=== PATIENT | male | born 1960 | race Two or more races ===

== ENCOUNTER 2025-06-14 14:59 | Inpatient (IN) | payer MEDICARE, MEDICAID ==
[2025-06-14] VITALS (7 sets, daily range): BP systolic 103–178; BP diastolic 90–108; PULSE 105–117; RESP 20–30; TEMP 36.5848–36.6; O2SAT 90–96
[~2025-06-14] VITALS: Ht 170.2 cm; Wt 76.7 kg
[2025-06-14 15:46] LABS: INR 1.0
[2025-06-14 15:49] LABS: CREATININE 0.7 mg/dL (0.6-1.3)
[2025-06-14 15:50] LABS: ETHANOL BLOOD < 10 mg/dL (<10); UREA NITROGEN BLOOD 9 mg/dL (9-23)
[2025-06-14 15:51] LABS: ASPARTATE AMINOTRANSFERASE 17 IU/L (<34)
[2025-06-14 15:52] LABS: BILIRUBIN DIRECT 0.1 mg/dL (<=3.0); BILIRUBIN TOTAL 0.5 mg/dL (0.1-1.0); PROTEIN TOTAL 7.5 g/dL (6.0-8.3)
[2025-06-14 16:06] LABS: BASOPHILS % 0.7 % (0.0-2.0); EOSINOPHILS % 5.5 % (0.0-5.0); HEMATOCRIT. 43.0 % (42.0-52.0); HEMOGLOBIN. 13.9 g/dL (14.0-18.0); LYMPHOCYTES % 8.8 % (20.0-50.0); MEAN PLATELET VOLUME 8.0 fl (7.4-10.4); MONOCYTES % 6.5 % (2.0-8.0); NEUTROPHILS % 78.5 % (40.0-76.0); PLATELET 301 x1000/uL (130-400); RED BLOOD CELL COUNT 5.59 mill/uL (4.7-6.1); RED CELL DISTRIBUTION WIDTH 18.5 % (11.6-14.6)
[2025-06-14] MEDS: SODIUM CHLORIDE 0.9% 1,000 ML IV ONE (16:32)
[2025-06-14] MEDS: METHYLPREDNISOLONE SOD SUCC 125MG/2ML (ACT-O-VIAL) IV ONE (16:32)
[2025-06-14] MEDS: ALBUTEROL (0.083%) 2.5MG/3ML NEB HHN SCH (16:50)
[2025-06-14] MEDS: IPRATROPIUM BROMIDE (0.02%) 0.5MG/2.5ML NEB HHN SCH (16:50)
[2025-06-14 17:59] LABS: BG BASE EXCESS -0.9 mmol/L (-2.0-3.0); BG CARBOXYHEMOGLOBIN 0.5 % (0.5-1.5); BG DEOXYHEMOGLOBIN 1.2 % (0.0-5.0); BG FRACTION INSPIRED OXYGEN 50; BG HCO3 ACT 24.5 mmol/L (21.0-28.0); BG METHEMOGLOBIN 0.1 % (0.5-1.5); BG OXYGEN SATURATION 98.8 % (94.0-98.0); BG OXYHEMOGLOBIN 98.2 % (94.0-98.0); BG PCO2 43.4 mmHg (35.0-48.0); BG PH 7.369 (7.350-7.450); BG PO2 145.1 mmHg (83.0-108.0); BG SAMPLE SITE RIGHT RADIAL; BG TOTAL HEMOGLOBIN 13.2 g/dL (13.5-17.5); BG VENT MODE MASK - BIPAP; BG VENT RATE 18.0 set
[2025-06-14] MEDS ORDERED: IPRATROPIUM/ALBUTEROL 0.5-3(2.5)MG/3ML NEB HHN PRN ×2 (18:00)
[2025-06-14] MEDS ORDERED: DOCUSATE SODIUM 100MG CAPSULE PO PRN (18:00)
[2025-06-14] MEDS ORDERED: ACETAMINOPHEN 325MG TABLET PO PRN ×2 (18:00)
[2025-06-14] MEDS ORDERED: ONDANSETRON HCL 4MG/2ML INJ IV PRN (18:00)
[2025-06-14] MEDS ORDERED: METHYLPREDNISOLONE SOD SUCC 40MG/ML (ACT-O-VIAL) IV SCH (18:00)
[2025-06-14] MEDS ORDERED: GUAIFENESIN 200MG/10ML SUGAR FREE UDC PO PRN (18:00)
[2025-06-14] MEDS ORDERED: CEFTRIAXONE 1GM/50ML 50 ML IV SCH (18:00)
[2025-06-14] MEDS ORDERED: MAGNESIUM/ALUMINUM HYDROXIDE/SIMETHICONE 30ML UDC PO PRN (18:00)
[2025-06-14] MEDS ORDERED: NALOXONE HCL 0.4MG/ML VIAL IV PRN (18:15)
[2025-06-14] MEDS ORDERED: AZITHROMYCIN 500MG/250ML 250 ML IV SCH (20:00)
[2025-06-14] MEDS ORDERED: DEXTROSE 50% WATER 50ML SYRINGE IV PRN (20:30)
[2025-06-14] MEDS: BLOOD SUGAR DIAGNOSTIC STRIP TEST SCH (21:00)
[2025-06-14] MEDS: CEFTRIAXONE 1GM/50ML 50 ML IV SCH (21:45)
[2025-06-14] MEDS: AZITHROMYCIN 500MG/250ML 250 ML IV SCH (21:45)
[2025-06-14] MEDS: METHYLPREDNISOLONE SOD SUCC 40MG/ML (ACT-O-VIAL) IV SCH (21:47)
[2025-06-14] MEDS: ENOXAPARIN 40MG/0.4ML SYR SUBCUT SCH (21:49)
[2025-06-14] MEDS: BUDESONIDE 0.5MG/2ML NEB HHN SCH (21:52)
[2025-06-14] MEDS: IPRATROPIUM/ALBUTEROL 0.5-3(2.5)MG/3ML NEB HHN PRN (21:53)
[2025-06-14] MEDS: INSULIN LISPRO 100 UNITS/ML SUBCUT SCH (22:54)
[2025-06-15] VITALS (15 sets, daily range): BP systolic 106–159; BP diastolic 56–113; PULSE 78–132; RESP 16–34; TEMP 36–36.9; O2SAT 93–99
[2025-06-15] MEDS ORDERED: CYAN-50 PO (00:02)
[2025-06-15] MEDS ORDERED: AMLO10TA80 PO (00:02)
[2025-06-15] MEDS ORDERED: HYDR25TA78 PO (00:02)
[2025-06-15] MEDS ORDERED: FERR324T4 MT (00:02)
[2025-06-15] MEDS ORDERED: LOSA100T33 PO (00:02)
[2025-06-15] MEDS ORDERED: ATOR40TA70 PO (00:02)
[2025-06-15] MEDS ORDERED: ASPI-1497 PO (00:02)
[2025-06-15] MEDS ORDERED: BUDE6.9H INH (00:02)
[2025-06-15 00:28] LABS: CREATINE KINASE MB FRACTION 2.0 ng/mL (0.5-3.6); TROPONIN I HIGH SENSITIVITY 6 ng/L (3.0-53)
[2025-06-15 00:56] LABS: CLARITY URINE CLEAR (CLEAR); COLOR URINE YELLOW (YELLOW); GLUCOSE URINE 1+ (NEGATIVE); KETONES URINE NEGATIVE (NEGATIVE); LEUKOCYTE ESTERASE URINE NEGATIVE (NEGATIVE); NITRITE URINE NEGATIVE (NEGATIVE); OCCULT BLOOD URINE TRACE (NEGATIVE); PH URINE 5.5 (4.5-8.0); PROTEIN URINE 2+ (NEGATIVE); SPECIFIC GRAVITY URINE 1.018 (1.005-1.030); UROBILINOGEN URINE 0.2 E.U./dL (0.2-1.0)
[2025-06-15 01:16] LABS: *AMPHETAMINES SCREEN URINE PRESUMPTIVE POSITIVE (NEGATIVE); *BARBITURATES SCREEN URINE NEGATIVE (NEGATIVE); *BENZODIAZEPINES SCREEN URINE NEGATIVE (NEGATIVE); *COCAINE SCREEN URINE NEGATIVE (NEGATIVE); CANNABINOID URINE SCREEN NEGATIVE (NEGATIVE); ECSTASY MDMA SCREEN URINE NEGATIVE (NEGATIVE); METHADONE URINE SCREEN NEGATIVE (NEGATIVE); OPIATES URINE SCREEN NEGATIVE (NEGATIVE); PHENCYCLIDINE URINE SCREEN NEGATIVE (NEGATIVE)
[2025-06-15] MEDS: CLONIDINE 0.1MG TABLET PO PRN (01:37)
[2025-06-15 04:28] LABS: BACTERIA URINE NONE SEEN; RBC URINE 0-2 /hpf (0-2); SQUAMOUS EPITHELIAL CELL URINE NONE SEEN /lpf (RARE/1+); WBC URINE 0-2 /hpf (0-2)
[2025-06-15 05:34] LABS: CREATINE KINASE MB FRACTION 2.7 ng/mL (0.5-3.6); TROPONIN I HIGH SENSITIVITY 7 ng/L (3.0-53)
[2025-06-15 05:37] LABS: CREATININE 0.6 mg/dL (0.6-1.3)
[2025-06-15 05:38] LABS: TRIGLYCERIDE 64 mg/dL (0-150); UREA NITROGEN BLOOD 10 mg/dL (9-23)
[2025-06-15 05:39] LABS: LDL CHOLESTEROL 123 mg/dL (5-100)
[2025-06-15 06:25] LABS: HEMATOCRIT. 41.5 % (42.0-52.0); HEMOGLOBIN. 13.8 g/dL (14.0-18.0); MEAN PLATELET VOLUME 8.2 fl (7.4-10.4); PLATELET 340 x1000/uL (130-400); RED BLOOD CELL COUNT 5.41 mill/uL (4.7-6.1); RED CELL DISTRIBUTION WIDTH 18.2 % (11.6-14.6)
[2025-06-15] MEDS: ASPIRIN 81MG EC TABLET PO SCH (09:25)
[2025-06-15] MEDS: LORAZEPAM 1MG TABLET PO PRN (09:25)
[2025-06-15] MEDS: LOSARTAN 100 MG TABLET PO SCH (09:26)
[2025-06-15] MEDS: HYDRALAZINE HCL 25MG TABLET PO SCH (09:26)
[2025-06-15] MEDS: LORATADINE 10MG TABLET PO SCH (09:27)
[2025-06-15] MEDS: CYANOCOBALAMIN 1000MCG TABLET PO SCH (09:27)
[2025-06-15] MEDS: AMLODIPINE 10MG TABLET PO SCH (09:27)
[2025-06-15] MEDS: ATORVASTATIN CALCIUM 40MG TABLET PO SCH (09:28)
[2025-06-15] MEDS: HYDROCODONE/ACETAMINOPHEN 5/325MG TABLET PO PRN (12:08)
[2025-06-15] MEDS: MONTELUKAST SODIUM 10MG TABLET PO SCH (16:04)
[2025-06-15 16:09] LABS: LYMPHOCYTES % MANUAL 8.0 % (20.0-50.0); MONOCYTES % MANUAL 5.0 % (2.0-8.0); NEUTROPHILS % MANUAL 87.0 % (45.0-75.0); PLATELET ESTIMATE NORMAL
[2025-06-16] VITALS (13 sets, daily range): BP systolic 106–147; BP diastolic 48–82; PULSE 72–126; RESP 16–21; TEMP 36.2–37; O2SAT 91–99
[2025-06-16 06:53] LABS: CREATININE 0.7 mg/dL (0.6-1.3); UREA NITROGEN BLOOD 23 mg/dL (9-23)
[2025-06-16 07:11] LABS: HEMATOCRIT. 40.3 % (42.0-52.0); HEMOGLOBIN. 13.1 g/dL (14.0-18.0); MEAN PLATELET VOLUME 8.2 fl (7.4-10.4); PLATELET 334 x1000/uL (130-400); RED BLOOD CELL COUNT 5.23 mill/uL (4.7-6.1); RED CELL DISTRIBUTION WIDTH 18.5 % (11.6-14.6)
[2025-06-16 11:34] LABS: LYMPHOCYTES % MANUAL 2.0 % (20.0-50.0); MONOCYTES % MANUAL 2.0 % (2.0-8.0); NEUTROPHILS % MANUAL 96.0 % (45.0-75.0); PLATELET ESTIMATE NORMAL
[2025-06-16 14:58] LABS: BG BASE EXCESS 2.2 mmol/L (-2.0-3.0); BG CARBOXYHEMOGLOBIN 1.1 % (0.5-1.5); BG DEOXYHEMOGLOBIN 5.0 % (0.0-5.0); BG FRACTION INSPIRED OXYGEN 21; BG HCO3 ACT 26.0 mmol/L (21.0-28.0); BG METHEMOGLOBIN 0.3 % (0.5-1.5); BG OXYGEN SATURATION 94.9 % (94.0-98.0); BG OXYHEMOGLOBIN 93.6 % (94.0-98.0); BG PCO2 37.7 mmHg (35.0-48.0); BG PH 7.456 (7.350-7.450); BG PO2 71.0 mmHg (83.0-108.0); BG SAMPLE SITE RIGHT RADIAL; BG TOTAL HEMOGLOBIN 13.5 g/dL (13.5-17.5); BG VENT MODE ROOM AIR
[2025-06-16] MEDS: ATORVASTATIN CALCIUM 40MG TABLET PO SCH (20:16)
[2025-06-17] VITALS (11 sets, daily range): BP systolic 121–158; BP diastolic 74–99; PULSE 85–119; RESP 15–24; TEMP 36.4–36.8; O2SAT 91–98
[2025-06-17 08:54] LABS: HEMATOCRIT. 42.1 % (42.0-52.0); HEMOGLOBIN. 13.8 g/dL (14.0-18.0); MEAN PLATELET VOLUME 7.8 fl (7.4-10.4); PLATELET 366 x1000/uL (130-400); RED BLOOD CELL COUNT 5.46 mill/uL (4.7-6.1); RED CELL DISTRIBUTION WIDTH 18.5 % (11.6-14.6)
[2025-06-17 09:05] LABS: CREATININE 0.6 mg/dL (0.6-1.3); UREA NITROGEN BLOOD 16 mg/dL (9-23)
[2025-06-17 10:48] LABS: BAND% 4.0 % (1.0-6.0); LYMPHOCYTES % MANUAL 2.0 % (20.0-50.0); MONOCYTES % MANUAL 3.0 % (2.0-8.0); NEUTROPHILS % MANUAL 91.0 % (45.0-75.0); PLATELET ESTIMATE NORMAL
[2025-06-17] MEDS: METHYLPREDNISOLONE SOD SUCC 40MG/ML (ACT-O-VIAL) IV SCH (10:58)
[2025-06-17] MEDS: HYDRALAZINE HCL 25MG TABLET PO SCH (13:58)
[2025-06-17] MEDS: IPRATROPIUM/ALBUTEROL 0.5-3(2.5)MG/3ML NEB HHN SCH (21:05)
[2025-06-18] VITALS (11 sets, daily range): BP systolic 120–132; BP diastolic 58–85; PULSE 76–126; RESP 15–20; TEMP 36.2–36.6; O2SAT 95–99
[2025-06-18] MEDS: METHYLPREDNISOLONE SOD SUCC 40MG/ML (ACT-O-VIAL) IV SCH (20:50)
[2025-06-19] VITALS (9 sets, daily range): BP systolic 123–143; BP diastolic 69–79; PULSE 91–111; RESP 17–20; TEMP 35.9–36.6; O2SAT 94–98
[2025-06-19 10:33] LABS: BASOPHILS % 0.1 % (0.0-2.0); EOSINOPHILS % 0.0 % (0.0-5.0); HEMATOCRIT. 42.9 % (42.0-52.0); HEMOGLOBIN. 13.7 g/dL (14.0-18.0); LYMPHOCYTES % 13.0 % (20.0-50.0); MEAN PLATELET VOLUME 7.9 fl (7.4-10.4); MONOCYTES % 5.8 % (2.0-8.0); NEUTROPHILS % 81.1 % (40.0-76.0); PLATELET 366 x1000/uL (130-400); RED BLOOD CELL COUNT 5.51 mill/uL (4.7-6.1); RED CELL DISTRIBUTION WIDTH 18.6 % (11.6-14.6)
[2025-06-19 10:53] LABS: CREATININE 0.7 mg/dL (0.6-1.3)
[2025-06-19 10:54] LABS: UREA NITROGEN BLOOD 15 mg/dL (9-23)
[2025-06-19 10:56] LABS: PHOSPHORUS 3.5 mg/dL (2.5-4.9)
[2025-06-19] MEDS ORDERED: HYDR50TA40 MT (11:05)
[2025-06-19] MEDS ORDERED: PRED5TAB48 MT (11:05)
[2025-06-19 13:28] LABS: BG BASE EXCESS 4.1 mmol/L (-2.0-3.0); BG CARBOXYHEMOGLOBIN 0.8 % (0.5-1.5); BG DEOXYHEMOGLOBIN 5.3 % (0.0-5.0); BG FRACTION INSPIRED OXYGEN 21; BG HCO3 ACT 27.3 mmol/L (21.0-28.0); BG METHEMOGLOBIN 0.3 % (0.5-1.5); BG OXYGEN SATURATION 94.6 % (94.0-98.0); BG OXYHEMOGLOBIN 93.6 % (94.0-98.0); BG PCO2 36.4 mmHg (35.0-48.0); BG PH 7.493 (7.350-7.450); BG PO2 68.0 mmHg (83.0-108.0); BG SAMPLE SITE LEFT RADIAL; BG TOTAL HEMOGLOBIN 14.1 g/dL (13.5-17.5); BG VENT MODE ROOM AIR
[2025-06-19] MEDS ORDERED: IPRA3AMP9 HHN (16:51)
== END 2025-06-19 17:45 | disposition home health service (06) | DRG 189 ==
LOC: ER 15:26 → EDBEDREQ 17:47 → EDBEDREQTM 17:47 → 5EST 20:07 → EDBD 20:07 → 6WST 06-18 09:34
PROVIDERS: ADMIT Internal Medicine; ATTEND Internal Medicine
PROC: 5A09357 Assistance with Respiratory Ventilation, Less than 24 Consecutive Hours, Continuous Positive Airway Pressure (ICD-10-PCS; principal; 2025-06-14)
DX: J96.01 Acute respiratory failure with hypoxia (principal); J44.1 Chronic obstructive pulmonary disease with (acute) exacerbation; J45.901 Unspecified asthma with (acute) exacerbation; D72.10 Eosinophilia, unspecified; E11.9 Type 2 diabetes mellitus without complications; F15.10 Other stimulant abuse, uncomplicated; F41.9 Anxiety disorder, unspecified; I10 Essential (primary) hypertension; Z20.822 Contact with and (suspected) exposure to COVID-19; F17.210 Nicotine dependence, cigarettes, uncomplicated; Z79.51 Long term (current) use of inhaled steroids; Z79.899 Other long term (current) drug therapy
CPT/HCPCS: 36415; 36600; 71045; 80048; 80061; 80076; 80305; 80320; 81003; 82375; 82550; 82553; 82805; 82962; 83036; 83735; 83880; 84100; 84145; 84443; 84484; 85025; 87070; 87426; 93005; 93970; 94070; 94618; 94640; 94660; 94664; 94760; 97162; 99291; A4606; J0456; J0696; J1650; J1815; J2919; J7030; J7626; G0480